=== PATIENT | male | born 1970 | race Two or more races ===

== ENCOUNTER → 2020-11-09 | Outpatient (CLI) | payer OTHER ==
[2020-11-09 08:54] LABS: Basophils # (auto) 0 10 ^3/uL (0-0.2); Basophils % (auto) 0.9 % (0.0-2.0); Eosinophils # (auto) 0.1 10 ^3/uL (0-0.8); Eosinophils % (auto) 3.4 % (0.0-7.0); Hemoglobin 14.8 g/dL (13.5-17.5); Lymphocytes # (auto) 0.5 10 ^3/uL (0.4-5.4); Lymphocytes % (auto) 15.4 % (10.0-50.0); Mean Corpuscular Hemoglobin 37.6 pg (28.0-32.0); Mean Corpuscular Hgb Conc. 35.3 g/dL (32.0-36.0); Mean Corpuscular Volume 106.5 fL (80.0-100.0); Monocytes # (auto) 0.5 10 ^3/uL (0-1.3); Monocytes % (auto) 16.8 % (0.0-12.0); Neutrophils % (auto) 63.5 % (37.0-80.0); Nucleated Red Blood Cells % 0.1 %; Red Blood Cells 3.95 10^6/uL (4.5-5.90); Red Cell Distribution Width 13.2 % (11.8-14.3); White Blood Cell 3.2 10^3/uL (4.4-10.8)
[2020-11-09 09:01] LABS: Urine Bacteria FEW /hpf (None Seen); Urine Blood Negative /uL (Negative); Urine Hyaline Cast FEW /lpf (0 - 2); Urine Mucus FEW (None Seen); Urine Specific Gravity 1.011 (1.001-1.035); Urine WBC 1 /hpf (0 - 3)
[2020-11-09 09:21] LABS: Albumin 3.5 g/dL (3.4-5.0); Potassium 3.5 mmol/L (3.5-5.1)
[2020-11-09 09:29] LABS: BUN/Creatinine Ratio 7.3; Bilirubin, Total 1.1 mg/dL (0.2-1.0); Calcium 8.6 mg/dL (8.5-10.1); Total Protein 6.8 g/dL (6.4-8.2)
== END | disposition home or self-care (01) ==
LOC: LAB 08:28
PROVIDERS: ATTEND Internal Medicine Nephrology
DX: C02.9 Malignant neoplasm of tongue, unspecified (principal)
CPT/HCPCS: 36415; 80053; 80061; 81001; 82306; 83036; 84439; 84443; 85025; 85049

== ENCOUNTER → 2021-01-05 | Outpatient (CLI) | payer OTHER ==
[2021-01-05 14:57] LABS: Free T4 (Free Thyroxine) 0.95 ng/dL (0.89-1.76)
[2021-01-05 14:58] LABS: Free T3 2.29 pg/mL (2.3-4.2); T3 Total 0.6 ng/mL (0.60-1.81)
== END | disposition home or self-care (01) ==
LOC: LAB 13:29
PROVIDERS: ATTEND Internal Medicine Nephrology
DX: E03.9 Hypothyroidism, unspecified (principal)
CPT/HCPCS: 36415; 84439; 84443; 84480; 84481

== ENCOUNTER → 2021-05-29 | Outpatient (CLI) | payer OTHER | END | disposition home or self-care (01) | LOC: LAB 14:23 | PROVIDERS: ATTEND Internal Medicine Nephrology | DX: E03.9 Hypothyroidism, unspecified (principal) | CPT/HCPCS: 36415; 84439; 84443 ==

== ENCOUNTER → 2021-10-12 | Outpatient (CLI) | payer OTHER ==
[2021-10-12 16:17] LABS: Free T3 2.96 pg/mL (2.3-4.2); Free T4 (Free Thyroxine) 1.16 ng/dL (0.89-1.76); T3 Total 0.83 ng/mL (0.60-1.81)
== END | disposition home or self-care (01) ==
LOC: LAB 15:11
PROVIDERS: ATTEND Internal Medicine Nephrology
DX: E03.9 Hypothyroidism, unspecified (principal)
CPT/HCPCS: 36415; 84439; 84443; 84480; 84481

== ENCOUNTER → 2021-11-07 | Outpatient (CLI) | payer OTHER ==
[2021-11-07 10:04] LABS: Albumin 3.3 g/dL (3.4-5.0); Calcium 8.4 mg/dL (8.5-10.1)
[2021-11-07 10:06] LABS: BUN/Creatinine Ratio 9.7; Bilirubin, Total 0.4 mg/dL (0.2-1.0); Total Protein 6.3 g/dL (6.4-8.2)
[2021-11-07 10:07] LABS: Eosinophils # (auto) 0.1 10 ^3/uL (0-0.8); Eosinophils % (auto) 2.9 % (0.0-7.0); Neutrophils # (auto) 2.4 10 ^3/uL (1.6-8.6); White Blood Cell 3.8 10^3/uL (4.4-10.8)
[2021-11-07 10:12] LABS: Basophils # (auto) 0.1 10 ^3/uL (0-0.2); Basophils % (auto) 1.5 % (0.0-2.0); Hematocrit 41.3 % (41.0-53.0); Hemoglobin 13.9 g/dL (13.5-17.5); Lymphocytes # (auto) 0.9 10 ^3/uL (0.4-5.4); Lymphocytes % (auto) 22.4 % (10.0-50.0); Mean Corpuscular Hemoglobin 36.5 pg (28.0-32.0); Mean Corpuscular Hgb Conc. 33.6 g/dL (32.0-36.0); Mean Corpuscular Volume 108.6 fL (80.0-100.0); Monocytes # (auto) 0.4 10 ^3/uL (0-1.3); Monocytes % (auto) 11.3 % (0.0-12.0); Neutrophils % (auto) 61.9 % (37.0-80.0); Nucleated Red Blood Cells % 0.3 %; Red Cell Distribution Width 13.9 % (11.8-14.3)
[2021-11-07 10:30] LABS: Potassium 5.6 mmol/L (3.5-5.1)
== END | disposition home or self-care (01) ==
LOC: LAB 09:35
PROVIDERS: ATTEND Internal Medicine
DX: M86.9 Osteomyelitis, unspecified (principal); M27.2 Inflammatory conditions of jaws; K12.2 Cellulitis and abscess of mouth
CPT/HCPCS: 36415; 80053; 82550; 85025

== ENCOUNTER → 2021-11-14 | Outpatient (CLI) | payer OTHER ==
[2021-11-14 07:06] LABS: Basophils # (auto) 0 10 ^3/uL (0-0.2); Basophils % (auto) 1.1 % (0.0-2.0); Eosinophils # (auto) 0.1 10 ^3/uL (0-0.8); Eosinophils % (auto) 2.5 % (0.0-7.0); Hematocrit 37.4 % (41.0-53.0); Lymphocytes # (auto) 0.6 10 ^3/uL (0.4-5.4); Lymphocytes % (auto) 15.8 % (10.0-50.0); Mean Corpuscular Hemoglobin 37.3 pg (28.0-32.0); Mean Corpuscular Hgb Conc. 34.6 g/dL (32.0-36.0); Mean Corpuscular Volume 107.8 fL (80.0-100.0); Monocytes # (auto) 0.6 10 ^3/uL (0-1.3); Monocytes % (auto) 16.9 % (0.0-12.0); Neutrophils # (auto) 2.3 10 ^3/uL (1.6-8.6); Neutrophils % (auto) 63.7 % (37.0-80.0); Nucleated Red Blood Cells % 0.1 %; Red Blood Cells 3.47 10^6/uL (4.5-5.90); Red Cell Distribution Width 12.9 % (11.8-14.3); White Blood Cell 3.6 10^3/uL (4.4-10.8)
[2021-11-14 07:20] LABS: Albumin 3.3 g/dL (3.4-5.0); Calcium 8.4 mg/dL (8.5-10.1); Potassium 5.3 mmol/L (3.5-5.1)
[2021-11-14 07:23] LABS: BUN/Creatinine Ratio 8.3; Bilirubin, Total 0.3 mg/dL (0.2-1.0); CRP High Sensitivity 0.14 mg/dL (< 0.3); Total Protein 6.5 g/dL (6.4-8.2)
== END | disposition home or self-care (01) ==
LOC: LAB 06:26
PROVIDERS: ATTEND Internal Medicine
DX: M27.2 Inflammatory conditions of jaws (principal); M86.9 Osteomyelitis, unspecified
CPT/HCPCS: 36415; 80053; 85025; 85652; 86141

== ENCOUNTER → 2021-11-28 | Outpatient (CLI) | payer OTHER ==
[2021-11-28 07:41] LABS: Basophils # (auto) 0 10 ^3/uL (0-0.2); Basophils % (auto) 0.8 % (0.0-2.0); Eosinophils # (auto) 0 10 ^3/uL (0-0.8); Hemoglobin 13.6 g/dL (13.5-17.5); Monocytes # (auto) 0.5 10 ^3/uL (0-1.3); Neutrophils # (auto) 3.4 10 ^3/uL (1.6-8.6); Nucleated Red Blood Cells % 0.3 %
[2021-11-28 07:43] LABS: Eosinophils % (auto) 0.6 % (0.0-7.0); Lymphocytes # (auto) 0.7 10 ^3/uL (0.4-5.4); Lymphocytes % (auto) 14.2 % (10.0-50.0); Mean Corpuscular Hemoglobin 36.3 pg (28.0-32.0); Mean Corpuscular Hgb Conc. 33.9 g/dL (32.0-36.0); Mean Corpuscular Volume 106.9 fL (80.0-100.0); Monocytes % (auto) 11.4 % (0.0-12.0); Red Blood Cells 3.74 10^6/uL (4.5-5.90); Red Cell Distribution Width 12.9 % (11.8-14.3); White Blood Cell 4.7 10^3/uL (4.4-10.8)
[2021-11-28 08:05] LABS: Albumin 3.3 g/dL (3.4-5.0); Calcium 8.3 mg/dL (8.5-10.1); Potassium 5.1 mmol/L (3.5-5.1)
[2021-11-28 08:09] LABS: BUN/Creatinine Ratio 6.7; Bilirubin, Total 0.6 mg/dL (0.2-1.0); CRP High Sensitivity 0.03 mg/dL (< 0.3); Total Protein 6.2 g/dL (6.4-8.2)
== END | disposition home or self-care (01) ==
LOC: LAB 07:06
PROVIDERS: ATTEND Internal Medicine Nephrology
DX: M27.2 Inflammatory conditions of jaws (principal)
CPT/HCPCS: 36415; 80053; 82550; 85025; 85652; 86141

== ENCOUNTER → 2021-12-05 | Outpatient (CLI) | payer OTHER ==
[2021-12-05 07:35] LABS: Basophils # (auto) 0 10 ^3/uL (0-0.2); Basophils % (auto) 1.2 % (0.0-2.0); Eosinophils # (auto) 0 10 ^3/uL (0-0.8); Eosinophils % (auto) 1.3 % (0.0-7.0); Hematocrit 40.5 % (41.0-53.0); Hemoglobin 13.5 g/dL (13.5-17.5); Lymphocytes # (auto) 0.6 10 ^3/uL (0.4-5.4); Lymphocytes % (auto) 15.6 % (10.0-50.0); Mean Corpuscular Hgb Conc. 33.4 g/dL (32.0-36.0); Mean Corpuscular Volume 107.8 fL (80.0-100.0); Monocytes # (auto) 0.4 10 ^3/uL (0-1.3); Monocytes % (auto) 10.3 % (0.0-12.0); Neutrophils # (auto) 2.7 10 ^3/uL (1.6-8.6); Neutrophils % (auto) 71.6 % (37.0-80.0); Red Blood Cells 3.76 10^6/uL (4.5-5.90); Red Cell Distribution Width 13.1 % (11.8-14.3); White Blood Cell 3.7 10^3/uL (4.4-10.8)
[2021-12-05 07:42] LABS: Calcium 8.6 mg/dL (8.5-10.1); Potassium 5.1 mmol/L (3.5-5.1)
[2021-12-05 07:48] LABS: Albumin 3.3 g/dL (3.4-5.0); BUN/Creatinine Ratio 5.9; Bilirubin, Total 0.6 mg/dL (0.2-1.0); CRP High Sensitivity 0.08 mg/dL (< 0.3); Total Protein 6.3 g/dL (6.4-8.2)
== END | disposition home or self-care (01) ==
LOC: LAB 06:52
PROVIDERS: ATTEND Internal Medicine Nephrology
DX: M27.2 Inflammatory conditions of jaws (principal)
CPT/HCPCS: 36415; 80053; 82550; 85025; 86141

== ENCOUNTER 2021-12-27 14:42 | Emergency (ER) | payer OTHER ==
[~2021-12-27] VITALS: Ht 185.4 cm; Wt 43.0 kg
[2021-12-27] MEDS ORDERED: SODIUM CHLORIDE 0.9% 1,000 ML IV ONE (18:30)
[2021-12-27] MEDS ORDERED: PYRIDOXINE HCL 50 MG TAB PO ONE (18:30)
[2021-12-27] MEDS ORDERED: THIAMINE HCL 100 MG TAB PO ONE (18:30)
[2021-12-27 19:43] LABS: Basophils # (auto) 0 10 ^3/uL (0-0.2); Basophils % (auto) 0.7 % (0.0-2.0); Eosinophils # (auto) 0.1 10 ^3/uL (0-0.8); Hematocrit 45.5 % (41.0-53.0); Lymphocytes # (auto) 0.6 10 ^3/uL (0.4-5.4); Lymphocytes % (auto) 11.3 % (10.0-50.0); Mean Corpuscular Hemoglobin 34.8 pg (28.0-32.0); Mean Corpuscular Volume 105.5 fL (80.0-100.0); Monocytes # (auto) 0.7 10 ^3/uL (0-1.3); Monocytes % (auto) 12.4 % (0.0-12.0); Neutrophils % (auto) 74.6 % (37.0-80.0); Nucleated Red Blood Cells % 0.1 %; Red Blood Cells 4.31 10^6/uL (4.5-5.90); Red Cell Distribution Width 13.2 % (11.8-14.3); White Blood Cell 5.4 10^3/uL (4.4-10.8)
[2021-12-27 20:20] LABS: Albumin 3.7 g/dL (3.4-5.0); Calcium 8.7 mg/dL (8.5-10.1); Potassium 3.2 mmol/L (3.5-5.1)
[2021-12-27 20:29] LABS: Total Protein 7.1 g/dL (6.4-8.2)
[2021-12-27 22:00] VITALS: BP 109/69
== END 2021-12-28 00:57 | disposition home or self-care (01) ==
LOC: ER 14:42
DX: M79.89 Other specified soft tissue disorders (principal); R20.0 Anesthesia of skin
CPT/HCPCS: 36415; 74176; 80053; 83605; 83690; 84484; 85025

== ENCOUNTER 2022-01-03 15:55 | Inpatient (IN) | payer OTHER ==
[~2022-01-03] VITALS: Ht 185.4 cm; Wt 62.2 kg
[2022-01-03] MEDS ORDERED: SODIUM CHLORIDE 0.9% 1,000 ML IV ONE (16:15)
[2022-01-03] MEDS ORDERED: ONDANSETRON HCL 4 MG/2 ML VIAL IV ONE (16:15)
[2022-01-03 17:02] LABS: Basophils # (auto) 0 10 ^3/uL (0-0.2); Basophils % (auto) 0.4 % (0.0-2.0); Eosinophils # (auto) 0 10 ^3/uL (0-0.8); Lymphocytes # (auto) 0.4 10 ^3/uL (0.4-5.4); Lymphocytes % (auto) 5.2 % (10.0-50.0); Mean Corpuscular Hemoglobin 35.3 pg (28.0-32.0); Monocytes # (auto) 1.1 10 ^3/uL (0-1.3); Neutrophils # (auto) 6.4 10 ^3/uL (1.6-8.6); Neutrophils % (auto) 80.5 % (37.0-80.0); Red Cell Distribution Width 13.2 % (11.8-14.3)
[2022-01-03 17:05] LABS: Eosinophils % (auto) 0.2 % (0.0-7.0); Hematocrit 39.3 % (41.0-53.0); Hemoglobin 13.2 g/dL (13.5-17.5); Mean Corpuscular Hgb Conc. 33.6 g/dL (32.0-36.0); Mean Corpuscular Volume 105.1 fL (80.0-100.0); Monocytes % (auto) 13.7 % (0.0-12.0); Nucleated Red Blood Cells % 0.1 %; Red Blood Cells 3.74 10^6/uL (4.5-5.90)
[2022-01-03 17:19] LABS: INR 1.2 (0.9-1.15); Partial Thromboplastin Time 29.5 sec (24.6-33.4)
[2022-01-03 17:21] LABS: Albumin 3.4 g/dL (3.4-5.0); Calcium 8.7 mg/dL (8.5-10.1); Potassium 3.3 mmol/L (3.5-5.1)
[2022-01-03 17:25] LABS: Bilirubin, Total 1.2 mg/dL (0.2-1.0); Total Protein 6.8 g/dL (6.4-8.2)
[2022-01-03] MEDS: Ensure HIGH Protein Chocolate 8oz Bottle PO SCH ×2 (19:30→22:00)
[2022-01-03] MEDS ORDERED: TPN PER PHARMACY 0 ML IV SCH (19:30)
[2022-01-03] MEDS: MAGNESIUM SULFATE 1GM/100ML 100 ML IV SCH (23:31)
[2022-01-04] MEDS ORDERED: MAGNESIUM SULFATE 1GM/100ML 100 ML IV ONE (01:09)
[2022-01-04] MEDS: MAGNESIUM SULFATE 1GM/100ML 100 ML IV SCH (01:09)
[2022-01-04] MEDS ORDERED: ACETAMINOPHEN 325 MG TAB PO PRN (03:30)
[2022-01-04] MEDS ORDERED: DOCUSATE SOD 100 MG CAP PO PRN (03:30)
[2022-01-04] MEDS ORDERED: POTASSIUM CHL 20MEQ/100ML 100 ML IV ONE (03:30)
[2022-01-04] MEDS ORDERED: ONDANSETRON HCL 4 MG/2 ML VIAL IV PRN (03:30)
[2022-01-04] MEDS ORDERED: NITROGLYCERIN 0.4 MG SL TAB SL PRN (04:30)
[2022-01-04] MEDS ORDERED: MORPHINE SULFATE INJ 2 MG/ml SYRG IV PRN (04:30)
[2022-01-04] MEDS: HYDROcodone-ACET 5/325MG TAB PO PRN ×2 (04:35→15:03)
[2022-01-04] MEDS: SODIUM CHLORIDE 0.9% 1,000 ML IV SCH ×2 (04:40→22:43)
[2022-01-04 06:11] LABS: Basophils # (auto) 0 10 ^3/uL (0-0.2); Basophils % (auto) 0.5 % (0.0-2.0); Eosinophils # (auto) 0.1 10 ^3/uL (0-0.8); Eosinophils % (auto) 1.2 % (0.0-7.0); Hematocrit 31.3 % (41.0-53.0); Hemoglobin 10.9 g/dL (13.5-17.5); Lymphocytes # (auto) 0.4 10 ^3/uL (0.4-5.4); Lymphocytes % (auto) 7.8 % (10.0-50.0); Mean Corpuscular Hemoglobin 36.8 pg (28.0-32.0); Mean Corpuscular Volume 105.1 fL (80.0-100.0); Monocytes % (auto) 17.2 % (0.0-12.0); Neutrophils # (auto) 4.1 10 ^3/uL (1.6-8.6); Neutrophils % (auto) 73.3 % (37.0-80.0); Red Blood Cells 2.98 10^6/uL (4.5-5.90); Red Cell Distribution Width 13.1 % (11.8-14.3); White Blood Cell 5.6 10^3/uL (4.4-10.8)
[2022-01-04 06:28] LABS: Albumin 2.6 g/dL (3.4-5.0); Calcium 7.6 mg/dL (8.5-10.1); Potassium 3.5 mmol/L (3.5-5.1)
[2022-01-04 06:31] LABS: BUN/Creatinine Ratio 11.5; Bilirubin, Total 0.8 mg/dL (0.2-1.0); Total Protein 5.3 g/dL (6.4-8.2)
[2022-01-04] MEDS: LEVOTHYROXINE SODIUM 25 MCG TAB PO SCH (06:38)
[2022-01-04 07:06] LABS: Urine Bacteria NONE SEEN /hpf (None Seen); Urine Blood Negative /uL (Negative); Urine Specific Gravity 1.011 (1.001-1.035); Urine WBC 1 /hpf (0 - 3)
[2022-01-04] MEDS ORDERED: ALBUMIN 25% 100 ML IV ONE (07:45)
[2022-01-04] MEDS ORDERED: cefTRIAXone 1GM/50ML D5W 50 ML IV ONE (07:45)
[2022-01-04] MEDS: Ensure HIGH Protein Chocolate 8oz Bottle PO SCH ×4 (07:48→22:00)
[2022-01-04 08:31] LABS: INR 1.31 (0.9-1.15); Partial Thromboplastin Time 34.4 sec (24.6-33.4)
[2022-01-04] MEDS: ZINC SULFATE 220mg CAP or TAB PO SCH (10:00)
[2022-01-04] MEDS ORDERED: ASCORBIC ACID 500 MG TAB PO SCH (10:00)
[2022-01-04] MEDS: MULTIPLE VITAMIN TAB PO SCH (10:00)
[2022-01-04] MEDS ORDERED: ENOXAPARIN SOD 30 MG/0.3 ML SYRINGE SC SCH (10:00)
[2022-01-04] MEDS ORDERED: PANT40TA2 PO (10:08)
[2022-01-04] MEDS ORDERED: GABA300C10 PO (10:08)
[2022-01-04] MEDS ORDERED: SERT50TA19 PO (10:08)
[2022-01-04] MEDS ORDERED: LEVO75TA6 PO (10:08)
[2022-01-04] MEDS: FAMOTIDINE (10MG/ML) 2ML VL IV SCH ×2 (10:30→22:21)
[2022-01-04 13:50] VITALS: BP 86/62
[2022-01-04] MEDS ORDERED: ROPI4TAB6 PO (14:01)
[2022-01-04] MEDS ORDERED: MET500T PO (14:01)
[2022-01-04] MEDS ORDERED: DOXY-340 PO (14:01)
[2022-01-04] MEDS ORDERED: CHLO0.12 PO (14:03)
[2022-01-04] MEDS ORDERED: ONDA-188 PO (14:03)
[2022-01-04 17:01] VITALS: BP 93/54
[2022-01-04 22:00] VITALS: BP 89/60
[2022-01-04] MEDS ORDERED: PRAMIPEXOLE DIHYDROCHLORIDE MO 0.25 MG TAB PO SCH (22:00)
[2022-01-04] MEDS: GABAPENTIN 300 MG CAP PO SCH (22:21)
[2022-01-05] MEDS: HYDROcodone-ACET 5/325MG TAB PO PRN ×3 (02:27→17:00)
[2022-01-05 05:00] VITALS: BP 96/52
[2022-01-05 05:28] LABS: Eosinophils # (auto) 0.1 10 ^3/uL (0-0.8); Lymphocytes # (auto) 0.3 10 ^3/uL (0.4-5.4); Monocytes # (auto) 0.7 10 ^3/uL (0-1.3); Neutrophils # (auto) 4.1 10 ^3/uL (1.6-8.6); Red Blood Cells 3.18 10^6/uL (4.5-5.90); Red Cell Distribution Width 12.9 % (11.8-14.3)
[2022-01-05 05:30] LABS: Basophils # (auto) 0.1 10 ^3/uL (0-0.2); Basophils % (auto) 1.2 % (0.0-2.0); Eosinophils % (auto) 1.5 % (0.0-7.0); Hematocrit 33.1 % (41.0-53.0); Hemoglobin 11.4 g/dL (13.5-17.5); Lymphocytes % (auto) 5.4 % (10.0-50.0); Mean Corpuscular Hemoglobin 35.8 pg (28.0-32.0); Mean Corpuscular Hgb Conc. 34.3 g/dL (32.0-36.0); Mean Corpuscular Volume 104.3 fL (80.0-100.0); Monocytes % (auto) 13.4 % (0.0-12.0); Neutrophils % (auto) 78.5 % (37.0-80.0); White Blood Cell 5.2 10^3/uL (4.4-10.8)
[2022-01-05] MEDS: Ensure HIGH Protein Chocolate 8oz Bottle PO SCH ×3 (06:00→17:36)
[2022-01-05 06:09] LABS: Alanine Aminotransferase 14 U/L (16-61); Albumin 2.6 g/dL (3.4-5.0); Anion Gap 9 (5-15); Aspartate Aminotransferase 22 U/L (15-37); BUN/Creatinine Ratio 13.3; Blood Urea Nitrogen 2 mg/dL (7-18); Calcium 7.8 mg/dL (8.5-10.1); Carbon Dioxide 19 mmol/L (21-32); Chloride 108 mmol/L (98-107); GFR African American 898 mL/min; GFR Non-African American 742 mL/min; Glucose 84 mg/dL (74-106); Potassium 3.5 mmol/L (3.5-5.1); Sodium 136 mmol/L (136-145)
[2022-01-05 06:12] LABS: Alkaline Phosphatase 62 U/L (45-117); Bilirubin, Total 0.7 mg/dL (0.2-1.0); Total Protein 5.3 g/dL (6.4-8.2)
[2022-01-05] MEDS: LEVOTHYROXINE SODIUM 25 MCG TAB PO SCH (06:34)
[2022-01-05] MEDS: MULTIPLE VITAMIN TAB PO SCH (08:00)
[2022-01-05] MEDS: SERTRALINE HCL 50 MG TAB PO SCH (08:00)
[2022-01-05] MEDS: ZINC SULFATE 220mg CAP or TAB PO SCH (08:00)
[2022-01-05] MEDS: GABAPENTIN 300 MG CAP PO SCH (08:00)
[2022-01-05] MEDS: FAMOTIDINE (10MG/ML) 2ML VL IV SCH (08:00)
[2022-01-05 08:50] VITALS: BP 96/70
[2022-01-05] MEDS ORDERED: cefTRIAXone 1GM/50ML D5W 50 ML IV SCH (09:00)
[2022-01-05 12:35] VITALS: BP 106/76
[2022-01-05] MEDS: SODIUM CHLORIDE 0.9% 1,000 ML IV SCH (12:56)
[2022-01-05 13:17] LABS: % Iron Saturation 20.8 % (20-55)
[2022-01-05] MEDS: PRAMIPEXOLE DIHYDROCHLORIDE MO 0.25 MG TAB PO SCH ×2 (13:28→20:24)
[2022-01-05 17:00] VITALS: BP 100/72
[2022-01-05] MEDS ORDERED: Ensure HIGH Protein Vanilla 8oz Bottle PO SCH (18:00)
[2022-01-05 22:00] VITALS: BP 89/59
[2022-01-06] MEDS: FAMOTIDINE (10MG/ML) 2ML VL IV SCH ×3 (00:53→22:06)
[2022-01-06] MEDS: GABAPENTIN 300 MG CAP PO SCH ×3 (00:54→22:06)
[2022-01-06] MEDS: HYDROcodone-ACET 5/325MG TAB PO PRN ×4 (02:48→23:39)
[2022-01-06 05:00] VITALS: BP 84/55
[2022-01-06] MEDS: SODIUM CHLORIDE 0.9% 1,000 ML IV SCH ×2 (06:20→22:06)
[2022-01-06] MEDS: LEVOTHYROXINE SODIUM 25 MCG TAB PO SCH (06:20)
[2022-01-06] MEDS: Ensure HIGH Protein Chocolate 8oz Bottle PO SCH ×3 (08:14→18:05)
[2022-01-06] MEDS: MULTIPLE VITAMIN TAB PO SCH (08:15)
[2022-01-06] MEDS: SERTRALINE HCL 50 MG TAB PO SCH (08:15)
[2022-01-06] MEDS: PRAMIPEXOLE DIHYDROCHLORIDE MO 0.25 MG TAB PO SCH ×2 (08:15→22:06)
[2022-01-06] MEDS: ZINC SULFATE 220mg CAP or TAB PO SCH (08:15)
[2022-01-06 09:00] VITALS: BP 82/61
[2022-01-06] MEDS ORDERED: ceFAZolin 1GM/50ML 50 ML IV ONE (09:30)
[2022-01-06 13:00] VITALS: BP 96/57
[2022-01-06 17:00] VITALS: BP 99/69
[2022-01-06 22:00] VITALS: BP 105/62
[2022-01-07] VITALS (7 sets, daily range): BP systolic 97–166; BP diastolic 60–82
[2022-01-07] MEDS: LEVOTHYROXINE SODIUM 25 MCG TAB PO SCH (06:59)
[2022-01-07] MEDS: Ensure HIGH Protein Chocolate 8oz Bottle PO SCH ×2 (08:00→12:00)
[2022-01-07] MEDS ORDERED: NALOXONE HCL 0.4 MG/ML VIAL ONE (09:43)
[2022-01-07] MEDS ORDERED: FLUMAZENIL 0.1 MG/ML INJ 10ML MDV IV ONE (09:43)
[2022-01-07] MEDS ORDERED: LIDOCAINE VISCOUS 2% 15ML UD ONE (09:43)
[2022-01-07] MEDS ORDERED: SODIUM CHLORIDE LOCK 0 ML ONE (09:43)
[2022-01-07] MEDS ORDERED: diphenhdrAMINE HCL 50 MG/1 ML VL ONE (09:44)
[2022-01-07] MEDS ORDERED: MIDAZOLAM HCL 5 MG/ML-1ML VIAL ONE (09:44)
[2022-01-07] MEDS ORDERED: fentaNYL CITRATE 100 MCG/2 ML VL ONE (09:44)
[2022-01-07] MEDS: FAMOTIDINE (10MG/ML) 2ML VL IV SCH ×2 (09:46→23:06)
[2022-01-07] MEDS: ZINC SULFATE 220mg CAP or TAB PO SCH (10:00)
[2022-01-07] MEDS: MULTIPLE VITAMIN TAB PO SCH (10:00)
[2022-01-07] MEDS: SERTRALINE HCL 50 MG TAB PO SCH (10:00)
[2022-01-07] MEDS: PRAMIPEXOLE DIHYDROCHLORIDE MO 0.25 MG TAB PO SCH ×2 (10:00→23:02)
[2022-01-07] MEDS: GABAPENTIN 300 MG CAP PO SCH ×2 (10:00→23:02)
[2022-01-07 10:56] LABS: Folate (Folic Acid) > 24.00 ng/mL (5.38-24)
[2022-01-07 12:03] LABS: INR 1.05 (0.9-1.15)
[2022-01-07] MEDS: SODIUM CHLORIDE 0.9% 1,000 ML IV SCH (15:28)
[2022-01-07] MEDS ORDERED: ceFAZolin 1GM/50ML 50 ML IV ONE ×2 (15:46→23:00)
[2022-01-07] MEDS ORDERED: FAMOTIDINE (10MG/ML) 2ML VL IV ONE ×2 (16:46→17:30)
[2022-01-07] MEDS ORDERED: METOCLOPRAMIDE HCL 5MG/ml INJ 2ml VIAL IV PRN (17:30)
[2022-01-07] MEDS ORDERED: HYDROmorphone HCL 2 MG/ML VL/or syr IV PRN (17:30)
[2022-01-07] MEDS ORDERED: ceFAZolin 1GM/50ML 50 ML IV SCH (22:00)
[2022-01-07] MEDS: HYDROcodone-ACET 5/325MG TAB PO PRN (23:07)
[2022-01-08] MEDS: HYDROcodone-ACET 5/325MG TAB PO PRN ×2 (04:48→10:02)
[2022-01-08 05:00] VITALS: BP 104/70
[2022-01-08] MEDS: ENSURE CLEAR Apple 8oz Carton PO SCH ×2 (06:42→12:15)
[2022-01-08] MEDS: LEVOTHYROXINE SODIUM 25 MCG TAB PO SCH (06:50)
[2022-01-08 08:30] VITALS: BP 100/63
[2022-01-08 08:58] VITALS: BP 100/63
[2022-01-08] MEDS: SODIUM CHLORIDE 0.9% 1,000 ML IV SCH (10:01)
[2022-01-08] MEDS: MULTIPLE VITAMIN TAB PO SCH (10:01)
[2022-01-08] MEDS: GABAPENTIN 300 MG CAP PO SCH (10:01)
[2022-01-08] MEDS: SERTRALINE HCL 50 MG TAB PO SCH (10:01)
[2022-01-08] MEDS: FAMOTIDINE (10MG/ML) 2ML VL IV SCH (10:01)
[2022-01-08] MEDS: ZINC SULFATE 220mg CAP or TAB PO SCH (10:01)
[2022-01-08] MEDS: PRAMIPEXOLE DIHYDROCHLORIDE MO 0.25 MG TAB PO SCH (10:02)
[2022-01-08 13:00] VITALS: BP 102/76
[2022-01-08 15:49] VITALS: BP 102/76
[2022-01-09] MEDS ORDERED: FERR-7 PO (12:41)
== END 2022-01-08 16:43 | disposition home or self-care (01) | DRG 640 ==
LOC: ER 15:55 → OVERFLOW 01-04 04:20 → WEST WING 01-04 09:31
PROVIDERS: ADMIT Nurse Practitioner Family; ATTEND Internal Medicine
PROC: 0DH63UZ Insertion of Feeding Device into Stomach, Percutaneous Approach (ICD-10-PCS; principal; 2022-01-07 16:50)
DX: R62.7 Adult failure to thrive (principal); E43 Unspecified severe protein-calorie malnutrition; N39.0 Urinary tract infection, site not specified; E87.1 Hypo-osmolality and hyponatremia; Z68.1 Body mass index [BMI] 19.9 or less, adult; E86.0 Dehydration; Z20.822 Contact with and (suspected) exposure to COVID-19; E03.9 Hypothyroidism, unspecified; E83.42 Hypomagnesemia; E87.6 Hypokalemia; F17.290 Nicotine dependence, other tobacco product, uncomplicated; G25.81 Restless legs syndrome; I10 Essential (primary) hypertension; R13.12 Dysphagia, oropharyngeal phase; F32.A Depression, unspecified; K21.9 Gastro-esophageal reflux disease without esophagitis; Z96.643 Presence of artificial hip joint, bilateral; Z85.810 Personal history of malignant neoplasm of tongue
CPT/HCPCS: 36415; 71045; 80053; 81001; 82607; 82746; 82962; 83036; 83540; 83550; 83735; 84443; 85025; 85610; 85730; 87086; 93005; 93925; 96361; 96374; G0378; J0690; J2250; J2405; J3480; J3490

== ENCOUNTER 2022-01-14 23:58 | Inpatient (IN) | payer OTHER ==
[~2022-01-14] VITALS: Ht 185.4 cm; Wt 43.0 kg
[2022-01-14 23:30] VITALS: BP 102/72
[~2022-01-14 23:58] MED LIST: CHLO0.12 PO; DOXY-340 PO; FERR-7 PO; GABA300C10 PO; LEVO75TA6 PO; MET500T PO; ONDA-188 PO; PANT40TA2 PO; ROPI4TAB6 PO; SERT50TA19 PO
[2022-01-15 00:32] VITALS: BP 109/72
[2022-01-15] MEDS ORDERED: ACETAMINOPHEN 325 MG TAB PO PRN (03:30)
[2022-01-15] MEDS ORDERED: TEMAZEPAM 15 MG CAP PO PRN (03:30)
[2022-01-15] MEDS ORDERED: NITROGLYCERIN 0.4 MG SL TAB SL PRN (03:30)
[2022-01-15] MEDS ORDERED: ONDANSETRON HCL 4 MG/2 ML VIAL IV PRN (03:30)
[2022-01-15] MEDS ORDERED: MORPHINE SULFATE INJ 2 MG/ml SYRG IV PRN (03:30)
[2022-01-15] MEDS ORDERED: HEPARIN DRIP/D5W 100UNITS/ML 250 ML IV SCH ×3 (04:00→21:50)
[2022-01-15] MEDS: D5W/SOD CHLO 0.9% 1,000 ML IV SCH ×3 (04:09→22:29)
[2022-01-15] MEDS: MORPHINE SULFATE INJ 2 MG/ml SYRG IV PRN ×2 (04:27→09:30)
[2022-01-15 04:28] LABS: Eosinophils # (auto) 0.1 10 ^3/uL (0-0.8); Hemoglobin 11.8 g/dL (13.5-17.5); Lymphocytes # (auto) 0.7 10 ^3/uL (0.4-5.4)
[2022-01-15 04:29] LABS: Basophils # (auto) 0.1 10 ^3/uL (0-0.2); Basophils % (auto) 1.1 % (0.0-2.0); Eosinophils % (auto) 1.6 % (0.0-7.0); Hematocrit 34.9 % (41.0-53.0); Lymphocytes % (auto) 13.3 % (10.0-50.0); Mean Corpuscular Hemoglobin 35.1 pg (28.0-32.0); Mean Corpuscular Hgb Conc. 33.8 g/dL (32.0-36.0); Mean Corpuscular Volume 103.9 fL (80.0-100.0); Monocytes # (auto) 0.6 10 ^3/uL (0-1.3); Monocytes % (auto) 11.5 % (0.0-12.0); Neutrophils % (auto) 72.5 % (37.0-80.0); Red Blood Cells 3.36 10^6/uL (4.5-5.90); Red Cell Distribution Width 13.4 % (11.8-14.3); White Blood Cell 5.5 10^3/uL (4.4-10.8)
[2022-01-15 05:00] VITALS: BP 103/74
[2022-01-15 05:00] LABS: INR 1.2 (0.9-1.15)
[2022-01-15 05:01] LABS: Albumin 2.7 g/dL (3.4-5.0); BUN/Creatinine Ratio 12.5; Calcium 8.9 mg/dL (8.5-10.1); Potassium 4.1 mmol/L (3.5-5.1)
[2022-01-15 05:04] LABS: Bilirubin, Total 0.5 mg/dL (0.2-1.0); Total Protein 5.6 g/dL (6.4-8.2)
[2022-01-15 05:06] LABS: Partial Thromboplastin Time 107.7 sec (24.6-33.4)
[2022-01-15] MEDS: metroNIDAZOLE 500 MG TAB PO SCH ×3 (05:54→22:03)
[2022-01-15] MEDS: LEVOTHYROXINE SODIUM 25 MCG TAB PEG SCH (05:55)
[2022-01-15 09:11] VITALS: BP 102/78
[2022-01-15] MEDS: PANTOPRAZOLE 40 MG/10 ML VIAL INJ IV SCH (09:30)
[2022-01-15] MEDS: CHLORHEXIDINE 0.12% ORAL rinse 473ML MT SCH ×2 (09:30→22:03)
[2022-01-15] MEDS: SERTRALINE HCL 50 MG TAB PO SCH (09:30)
[2022-01-15] MEDS: GABAPENTIN 300 MG CAP PO SCH ×2 (09:30→22:04)
[2022-01-15] MEDS: DOXYCYCLINE 100 MG TAB/CAP PO SCH ×2 (09:30→22:04)
[2022-01-15 12:10] LABS: INR 1.22 (0.9-1.15); Partial Thromboplastin Time 35.4 sec (24.6-33.4)
[2022-01-15 13:00] VITALS: BP 82/55
[2022-01-15] MEDS ORDERED: HEPARIN SODIUM (PORCINE) 5000 UNITS/ML 1ML VIAL IV ONE (13:15)
[2022-01-15] MEDS: HEPARIN DRIP/D5W 100UNITS/ML 250 ML IV SCH ×2 (13:28→20:49)
[2022-01-15] MEDS: HYDROcodone-ACET 5/325MG TAB PO PRN ×2 (14:30→22:29)
[2022-01-15] MEDS ORDERED: PRAMIPEXOLE DIHYDROCHLORIDE MO 0.25 MG TAB PO ONE (15:15)
[2022-01-15 16:55] VITALS: BP 76/50
[2022-01-15 20:41] LABS: INR 1.26 (0.9-1.15)
[2022-01-15 20:44] LABS: Partial Thromboplastin Time > 139.0 sec (24.6-33.4)
[2022-01-15 22:00] VITALS: BP 94/65
[2022-01-15] MEDS ORDERED: ROPINEROLE PO SCH (22:00)
[2022-01-15] MEDS: PRAMIPEXOLE DIHYDROCHLORIDE MO 0.25 MG TAB PO SCH ×2 (22:00→22:04)
[2022-01-16] MEDS: MORPHINE SULFATE INJ 2 MG/ml SYRG IV PRN (02:39)
[2022-01-16 05:00] VITALS: BP 101/71
[2022-01-16] MEDS: metroNIDAZOLE 500 MG TAB PO SCH ×3 (05:07→20:08)
[2022-01-16] MEDS: LEVOTHYROXINE SODIUM 25 MCG TAB PEG SCH (05:53)
[2022-01-16 06:41] LABS: Eosinophils # (auto) 0.1 10 ^3/uL (0-0.8); Lymphocytes # (auto) 0.6 10 ^3/uL (0.4-5.4); Mean Corpuscular Volume 106.8 fL (80.0-100.0); Monocytes # (auto) 0.5 10 ^3/uL (0-1.3); White Blood Cell 3.2 10^3/uL (4.4-10.8)
[2022-01-16 06:43] LABS: Basophils # (auto) 0.1 10 ^3/uL (0-0.2); Basophils % (auto) 2.4 % (0.0-2.0); Eosinophils % (auto) 3.8 % (0.0-7.0); Hematocrit 37.9 % (41.0-53.0); Hemoglobin 12.6 g/dL (13.5-17.5); Lymphocytes % (auto) 18.6 % (10.0-50.0); Mean Corpuscular Hemoglobin 35.4 pg (28.0-32.0); Mean Corpuscular Hgb Conc. 33.2 g/dL (32.0-36.0); Monocytes % (auto) 15.2 % (0.0-12.0); Neutrophils # (auto) 1.9 10 ^3/uL (1.6-8.6); Nucleated Red Blood Cells % 0.2 %; Red Blood Cells 3.55 10^6/uL (4.5-5.90); Red Cell Distribution Width 13.2 % (11.8-14.3)
[2022-01-16] MEDS ORDERED: ROPINEROLE PO SCH (07:00)
[2022-01-16] MEDS: PRAMIPEXOLE DIHYDROCHLORIDE MO 0.25 MG TAB PO SCH ×2 (07:07→20:09)
[2022-01-16 07:28] LABS: INR 1.15 (0.9-1.15)
[2022-01-16] MEDS ORDERED: HEPARIN DRIP/D5W 100UNITS/ML 250 ML IV SCH (08:00)
[2022-01-16 09:00] VITALS: BP_SYST 109; BP_SYST 110; BP_DIAS 74; BP_DIAS 76
[2022-01-16] MEDS: GABAPENTIN 300 MG CAP PO SCH ×2 (09:15→20:09)
[2022-01-16] MEDS: DOXYCYCLINE 100 MG TAB/CAP PO SCH ×2 (09:15→20:09)
[2022-01-16] MEDS: PANTOPRAZOLE 40 MG/10 ML VIAL INJ IV SCH (09:15)
[2022-01-16] MEDS: HYDROcodone-ACET 5/325MG TAB PO PRN ×3 (09:15→23:28)
[2022-01-16] MEDS: CHLORHEXIDINE 0.12% ORAL rinse 473ML MT SCH ×2 (09:16→20:08)
[2022-01-16] MEDS: SERTRALINE HCL 50 MG TAB PO SCH (09:16)
[2022-01-16 13:00] VITALS: BP 110/74
[2022-01-16 17:00] VITALS: BP 106/72
[2022-01-16 18:41] LABS: INR 1.13 (0.9-1.15); Partial Thromboplastin Time 39.3 sec (24.6-33.4)
[2022-01-16] MEDS: APIXABAN 5 MG TAB PO SCH (20:08)
[2022-01-16 21:41] VITALS: BP 95/68
[2022-01-17 04:51] VITALS: BP 121/82
[2022-01-17] MEDS: metroNIDAZOLE 500 MG TAB PO SCH ×2 (05:30→15:30)
[2022-01-17] MEDS: HYDROcodone-ACET 5/325MG TAB PO PRN ×3 (05:31→15:30)
[2022-01-17] MEDS: LEVOTHYROXINE SODIUM 25 MCG TAB PEG SCH (06:04)
[2022-01-17 06:30] LABS: Eosinophils # (auto) 0.1 10 ^3/uL (0-0.8); Hematocrit 40.7 % (41.0-53.0); Lymphocytes # (auto) 0.7 10 ^3/uL (0.4-5.4); Monocytes # (auto) 0.6 10 ^3/uL (0-1.3); Monocytes % (auto) 14.1 % (0.0-12.0); Neutrophils # (auto) 2.7 10 ^3/uL (1.6-8.6); White Blood Cell 4.2 10^3/uL (4.4-10.8)
[2022-01-17 06:37] LABS: Basophils # (auto) 0.1 10 ^3/uL (0-0.2); Basophils % (auto) 1.3 % (0.0-2.0); Eosinophils % (auto) 2.7 % (0.0-7.0); Hemoglobin 13.3 g/dL (13.5-17.5); Lymphocytes % (auto) 17.2 % (10.0-50.0); Mean Corpuscular Hemoglobin 34.8 pg (28.0-32.0); Mean Corpuscular Hgb Conc. 32.6 g/dL (32.0-36.0); Mean Corpuscular Volume 106.7 fL (80.0-100.0); Neutrophils % (auto) 64.7 % (37.0-80.0); Red Blood Cells 3.81 10^6/uL (4.5-5.90); Red Cell Distribution Width 13.3 % (11.8-14.3)
[2022-01-17 08:10] VITALS: BP 88/60
[2022-01-17 09:00] VITALS: BP_SYST 118; BP_SYST 88; BP_DIAS 60; BP_DIAS 74
[2022-01-17] MEDS: PANTOPRAZOLE 40 MG/10 ML VIAL INJ IV SCH (09:10)
[2022-01-17] MEDS: PRAMIPEXOLE DIHYDROCHLORIDE MO 0.25 MG TAB PO SCH (09:11)
[2022-01-17] MEDS: DOXYCYCLINE 100 MG TAB/CAP PO SCH (09:11)
[2022-01-17] MEDS: SERTRALINE HCL 50 MG TAB PO SCH (09:11)
[2022-01-17] MEDS: APIXABAN 5 MG TAB PO SCH (09:11)
[2022-01-17] MEDS: GABAPENTIN 300 MG CAP PO SCH (09:11)
[2022-01-17] MEDS: CHLORHEXIDINE 0.12% ORAL rinse 473ML MT SCH (09:12)
[2022-01-17] MEDS ORDERED: APIX5TAB PO (11:44)
[2022-01-17 13:00] VITALS: BP 99/70
[2022-01-17 16:12] VITALS: BP 100/75
[2022-01-23] MEDS ORDERED: APIXABAN 5 MG TAB PO SCH (22:00)
== END 2022-01-17 18:32 | disposition home or self-care (01) | DRG 175 ==
LOC: TELE-WESTW 23:58
PROVIDERS: ADMIT Nurse Practitioner; ATTEND Internal Medicine
DX: I26.99 Other pulmonary embolism without acute cor pulmonale (principal); E43 Unspecified severe protein-calorie malnutrition; Z68.1 Body mass index [BMI] 19.9 or less, adult; G25.81 Restless legs syndrome; F32.A Depression, unspecified; Z20.822 Contact with and (suspected) exposure to COVID-19; J44.9 Chronic obstructive pulmonary disease, unspecified; E03.9 Hypothyroidism, unspecified; Z80.49 Family history of malignant neoplasm of other genital organs; Z85.810 Personal history of malignant neoplasm of tongue; Z87.81 Personal history of (healed) traumatic fracture; Z87.891 Personal history of nicotine dependence; Z92.3 Personal history of irradiation; Z93.1 Gastrostomy status
CPT/HCPCS: 36415; 80053; 82962; 84484; 85025; 85610; 85730; 87081; C9113; G0378; J7042